=== PATIENT | female | born 1930 | race Caucasian/White ===

== ENCOUNTER 2017-03-30 11:21 | Observation (INO) | payer MEDICARE, MEDICAID ==
[2017-03-30] MEDS ORDERED: Nitroglycerin 2% Ointment 1 INCH/1 GM Packet ONE (11:40)
--- NOTE | 2017-03-30 11:54 | RAD ---
CHEST ONE VIEW PORTABLE: HISTORY: An 87-year-old female with chest pain. COMPARISON: 11/01/16. Heart size is within normal limits. Minimal increased linear and interstitial markings bilaterally, stable. Atherosclerosis of the aorta with some ectasia. IMPRESSION: Stable-appearing chest. No acute intrathoracic disease. POS: KHARIH
[2017-03-30 11:57] LABS: #Basophils 0.1 thou/uL (0.0-0.2); #Eosinphils 0.6 thou/uL (0.0-0.7); #Lymphocytes 3.2 thou/uL (1.20-3.40); #Monocytes 0.9 thou/uL (0.11-0.59); %Basophils 0.6 % (0.0-1.0); %Eosinophils 6.6 % (0.0-10.0); %Lymphocytes 32.6 % (21.0-51.0); %Monocytes 9.3 % (0.0-10.0); Hematocrit 38.1 % (36.0-47.0); Mean Platelet Volume 6.7 fL (7.4-10.4); Red Blood Cell (RBC) Count 4.15 mill/uL (4.20-5.40); White Blood Cell (WBC) Count 9.8 thou/uL (4.8-10.8)
[2017-03-30 12:04] LABS: Prothrombin Time 13.5 SEC (12.0-14.7)
[2017-03-30 12:05] LABS: PTT 42.5 SEC (22.9-36.1)
[2017-03-30 12:21] LABS: ALT (SGPT) 10 U/L (8-55); AST (SGOT) 10 U/L (5-34); Alkaline Phosphatase 87 U/L (40-150); Anion Gap 14 mmol/L (10-20); BUN (Urea Nitrogen) 25 mg/dL (9.8-20.1); Bilirubin, Total 0.4 mg/dL (0.2-1.2); CK (CPK) 32 U/L (29-168); Calc. Creatinine Clearance 0 mL/min (70-130); Calcium 9.1 mg/dL (7.8-10.44); Carbon Dioxide 26 mmol/L (23-31); Chloride 103 mmol/L (98-107); Estimated GFR-MDRD 39; Globulin 3.3 g/dL (2.4-3.5); Lipase 19 U/L (8-78); Protein, Total 6.8 g/dL (6.0-8.3)
[2017-03-30 12:26] LABS: Troponin I Less than 0.010 ng/mL (< 0.028)
[2017-03-30] MEDS ORDERED: Enoxaparin Sodium 80 MG/0.8 ML SYRINGE ONE (13:05)
[2017-03-30 15:30] LABS: Troponin I Less than 0.010 ng/mL (< 0.028)
[2017-03-30] MEDS ORDERED: Nitroglycerin 0.4 MG TAB (25 Tab Bottle) SL PRN (15:31)
[2017-03-30] MEDS ORDERED: Mag-Al 1200 mg/1200 mg/30 ML UDCUP PO PRN (15:31)
[2017-03-30 15:39] VITALS: BMI 30.4
[2017-03-30] MEDS: Heparin 5,000 UNITS/ML VIAL SC SCH ×2 (16:41→21:38)
[2017-03-30] MEDS: Acetaminophen 325 MG TAB PO SCH (16:43)
[2017-03-30] MEDS: Sodium Chloride 0.9% 1,000 ML IV SCH (16:44)
--- NOTE | 2017-03-30 17:12 | HP ---
DATE OF ADMISSION: 03/30/2017 PRIMARY CARE PHYSICIAN: Dr. Peralta. DIRECT SUPPORT WORKER: Dr. Love. SURROGATE DECISION MAKER: Her daughter, [place] Al. CHIEF COMPLAINT: Chest pain and tiredness. HISTORY OF PRESENT ILLNESS: The patient is an 87-year-old female, who was getting dressed to go to [employer] this morning and she felt very tired. She started having some shortness of breath and she used 2 puffs of her inhaler, which is albuterol and after that she developed some chest pain which was retrosternal with some radiation to the left upper extremity. She did not get clammy. S he did not have nausea. She did not vomit. The pain was rated on a scale from 1-10 as 9. It laste d approximately a couple of minutes. It came back several times in the next several minutes then in approximately 15 minutes EMS crew arrived after they were called and they gave her aspirin and prob ably some nitro and the pain subsided. She is doing quite well at this point when I am admitting he r to the hospital, but because of the previous history of congestive heart failure and some coronary artery disease, we are admitting her to the hospital for further management. PAST MEDICAL HISTORY: Positive for: 1. Hypertension. 2. Congestive heart failure with diastolic dysfunction. 3. Dyslipidemia. 4. Asthma. 5. Coronary artery disease. 6. Hypothyroidism. 7. Gastroesophageal reflux disease. PAST SURGICAL HISTORY: 1. Bilateral knee replacement. 2. Cholecystectomy. 3. Cataract surgeries. 4. Hysterectomy. 5. Hemorrhoidectomy 6. Hernia repair. FAMILY HISTORY: Father had COPD, mother had coronary artery disease and brother had throat cancer. SOCIAL HISTORY: She denies any alcohol intake. She denies any smoking. She does not use any illic it drugs. ALLERGIES: TETANUS IMMUNOGLOBULIN, CODEINE, LISINOPRIL and SHELLFISH. MEDICATIONS: Albuterol inhalers 2 puffs p.r.n. as needed, Vicodin 5/325 mg half a tablet twice a da y, isosorbide 30 mg once a day, Zofran 4 mg p.r.n. for nausea, meloxicam 7.5 mg twice a day, furosem boris 40 mg I believe once a day, Coreg 6.25 mg twice a day, citalopram 20 mg once a day, gabapentin 3 00 mg every morning and 900 every evening, [place] as mentioned above, Synthroid 100 mcg once a day, P rotonix 40 mg twice a day, pravastatin 40 mg at bedtime, hydralazine 25 mg p.o. twice a day, but thi s is questionable. REVIEW OF SYSTEMS: Constitutional: Negative for fever and chills. Eyes: Negative for eye pain an d eye discharge. ENT: Negative for epistaxis and nasal congestion. Endocrine: Positive for some growth on all her thyroid, which is presenting as swallowing problem and the episodes of choking. R espiratory: Positive for shortness of breath. Negative for cough. Cardiovascular: Positive for c hest pain. Negative for palpitations. Feet swelling. Gastrointestinal: Negative for nausea and v omiting. Frequent heart fountain. Genitourinary: Negative for dysuria and hematuria. Neurologic: P ositive for dizzy spells. Positive for memory problem. Psychiatric: Negative for homicidal and suicidal ideations. PHYSICAL EXAMINATION: GENERAL: She is not in any distress during my visit. VITAL SIGNS: Her blood pressure is 123/53, pulse is 58, respiratory rate is 14. HEENT: Head is atraumatic, normocephalic. Pupils are responding to light properly. Sclerae is non icteric. Conjunctivae pinkish. Oral mucosa is moist. NECK: Supple, no lymphadenopathy. LUNGS: Clear. HEART: S1, S2 normal. No S3, no S4, no any murmur. ABDOMEN: Soft, nontender, nondistended, bowel sounds are present, no organomegaly. EXTREMITIES: No clubbing, cyanosis or edema. NEUROLOGIC: She is alert and oriented x4. There are no any focal deficits. Cranial nerves are int act. SKIN: No rash or erythema. LABORATORY AND X-RAY FINDINGS: Labs showed white count of 9.8, hemoglobin 12.2, hematocrit 38.1, pl atelet count is 317. PT 13.5, INR 1.0, aPTT 42.5. Normal electrolytes, BUN 25, creatinine 1.29. T he rest of chemistry within normal limits. Troponin I less than 0.010. She had a chest x-ray done, which was reviewed personally by me and it did not show any acute abnormalities, some few interstit ial markings which are looking chronic. EKG showed just normal sinus rhythm with ventricular rate o f 60 and no ischemic changes. IMPRESSION: 1. Chest pain, at this point is resolved, but because of patient's previous history, she is getting admitted for further management. Last time she was here in October. She did not consent for any spec [facility] testing and apparently she was supposed to see Dr. Love tomorrow and had some testing done. The patient was given 1 dose of Lovenox 1 mg/kg subcutaneously. 2. Prerenal azotemia. We will give her a small dose of normal saline at 75 mL per hour. 3. Hypertension, well controlled. 4. History of congestive heart failure with diastolic dysfunction. 5. Dyslipidemia. 6. Asthma. 7. Coronary artery disease. 8. Hypothyroidism. 9. Gastroesophageal reflux disease. PLAN: Admission to observation. Condition is fair. Activity is bed rest and bathroom privileges w ith assistance. IV 75 mL per hour of normal saline. We will continue her home medications except f or gabapentin and Vicodin. We will have army helicopter pilot to evaluate her. We will do echocardiogram an d she will be on aspirin 325 mg once a day and we are going to obtain a thyroid ultrasound since she has a growth on her thyroid according to her and this is symptomatic. Also, we will obtain a thyro id panel. For deep venous thrombosis prophylaxis, we will do regular heparin 5000 units every 12 ho urs and PUD prophylaxis, she will continue taking her Protonix 40 mg twice a day.
[2017-03-30 18:09] LABS: Troponin I Less than 0.010 ng/mL (< 0.028)
[2017-03-30] MEDS ORDERED: Communication Order-Pharmacy FS SCH (21:00)
[2017-03-30] MEDS ORDERED: Atorvastatin Calcium 10 MG TAB PO SCH (21:00)
[2017-03-30] MEDS: Citalopram 20 MG TAB PO SCH (21:37)
[2017-03-30] MEDS: Carvedilol 6.25 MG TAB PO SCH (21:37)
[2017-03-30] MEDS ORDERED: Gabapentin 300 MG CAP PO SCH (23:45)
--- NOTE | 2017-03-31 00:04 | ADD-CON ---
This is an addendum to the Cardiology consult note dictated by the nurse practitioner, Mi. DATE OF ADMISSION: 03/30/2017 DATE OF CONSULTATION: 03/30/2017 INDICATION FOR CONSULTATION: This is an 87-year-old female with chest pain and history of coronary artery disease. She has undergone at least 3 cardiac catheterizations in the past, first 2 were unr emarkable for any significant coronary artery disease this extends back to either 1996 or 2003. She did have a cardiac catheterization in [address] Espinoza, had a 3-vessel disease with no stenosis m ore than 60%. She has been treated by medical management. She has been followed on a routine basis with Dr. Love for her congestive heart failure which she has developed and last few weeks or mo nths, she has been complaining of increased fatigue. She was asleep all the time and today when she was getting ready to go to [employer], she developed more fatigue and shortness of breath and had chest discomfort which she describes as being a sharp pain which radiated to the lower sternal area then radiated up to the upper chest area. She became more short of breath but denies any diaphoresis, na usea, or vomiting. At this time, she has been admitted to the hospital for further evaluation and t reatment. Her hemoglobin is 12.2. Her creatinine is 1.29. Her LDL level is 162. Her cardiac enzy mes are unremarkable. Her EKG shows a sinus bradycardia with no acute changes. No indication of pr evious myocardial infarctions or ischemic changes. Heart rate is 60 beats per minute. After discus gabrielle with the patient, she is agreeable to undergo a cardiac catheterization. She has had stress te sting previously, has been unremarkable. However, she does continue to have some chest discomfort a nd given her age and history of known coronary artery disease by 2009, she may have had progression of her disease and is willing to undergo cardiac catheterization. Her chest pain is somewhat atypic al and that the sharp pain radiating up into the chest area, but she also says that radiated down th e left arm and the arm became heavy and this lasted for half an hour to an hour. I have explained t he procedure and the risks to her for the cardiac catheterization to include bleeding, infection, po ssibly a myocardial infarction, cerebrovascular accident, renal insufficiency, allergic contrast anmol ction, and even the possibility of and she understands. She is going to proceed in the hopes that she may get some relief from her overall fatigue and the chest discomfort. More so, she is mor e fatigued than actually having chest discomfort and also some shortness of breath. Further care of the patient will be by Dr. Love when he sees the patient tomorrow, but at this time, we will ke ep her n.p.o. for tomorrow morning and we will plan for a probable cardiac catheterization.
--- NOTE | 2017-03-31 05:57 | CON ---
DATE OF CONSULTATION: 03/30/2017 ROOM NUMBER: [id number] PRIMARY CARE PHYSICIAN: Binu Peralta M.D. PRIMARY GOVERNMENT PROPERTY INSPECTOR: Saleem Love M.D. REFERRING PHYSICIAN: Ricky Llanos M.D. HISTORY OF PRESENT ILLNESS: Ms. Zaragoza is an 87-year-old female with significant history of coronary artery disease, angina, and edema in her lower extremities. Patient was transferred from home to [facility] by EMS due to chest pain, shortness breath and chronic fatigue. This morning, when the patient was ready for Friday service in [facility], suddenly she felt very weak with a lightning like sharp pain in her left chest for a few seconds 3 times, and shortness of breath. The pain radiated to her left upper extremity and upper back. She also started having double vision. So patient's caregiver called ambulance and the patient was transferred to the emergency department for further evaluation and treatment. According to the patient's daughter, she was active until 3 months ago. Since then, the patient was complaining of weakness and sleeping all the time. The patient started using nitroglycerin 2 or 3 times a week for chest pain. The latest NTG usage was about 1 week ago. She had to use 3 nitroglycerin and aspirin at that time. She also complained of palpitations with exertion and bedtime. She also complained of shortness of breath. She has to take deep breaths between the sentences when she was talking. She also complained about vertigo-like dizziness when she look up or quick movement and when she wakes up in the morning, she feels her room is spinning and she feels dizziness. She was hospitalized in 10/2016 for bilateral edema and chest pain. At that time, patient refused to have a cardiac catheterization and further treatment. However, at this time, the patient and the patient's daughter would like to have any cardiac workup and further treatment. The patient's last cardiac catheterization was in 2009 which revealed normal left main, LAD has a proximal 40% stenosis, mid 40% stenosis, 30% distally, the 50-60% of very distal stenosis and a 50% apical, and the first diagonal 70% ostial lesion, second diagonal ostial 40% lesion, left circumflex 40% ostial, 50 % proximal 40% mid, first OM has a 40% lesion stenosis, and the right coronary artery had 50% stenosis, 20% in the mid, 30% distal stenosis. The patient's last echocardiogram was in 04/02 which revealed EF of 50-55% and moderate mitral valve regurgitation, mild tricuspid regurgitation and moderate primary valve regurgitation. Patient had a stress test in 07/[address] Love's office which revealed no evidence of ischemia with an EF of 82%. She had a CTA in 10/2016, which revealed no evidence of pulmonary emboli and venous Doppler in 10/2016 shows no evidence of DVTs. She underwent thyroid sonogram in 2016 revealing diffusely hypertrophied without focal abnormality evidence. PAST MEDICAL HISTORY: 1. Coronary artery disease. 2. Patient has a history of diastolic dysfunction. 3. Hypertension. 4. Hyperlipidemia. 5. Enlarged thyroid. 6. Gastroesophageal reflux disease. 7. Hypothyroidism. 8. High cholesterol. 9. Hernia repair. 10. History of multiple falls due to vertigo like dizziness. 11. Posterior circulation transient ischemic attack in the past. 12. Bilateral leg cellulitis. PAST SURGICAL HISTORY: 1. Tonsillectomy. 2. Bilateral total knee repairs. 3. Cholecystectomy. 4. Hysterectomy. 5. Hemorrhoidectomy. 6. Appendectomy. 7. Cataract surgery. 8. Back surgery. FAMILY HISTORY: The patient's 3 brothers due to cardiac related and lung cancer. However, 3 of them were heavy smokers according to patient's report. There are no significant diabetes, hypertension, high cholesterol or CVA, or diabetes related family history. SOCIAL HISTORY: She is a . She lives with her daughter who is the main caregiver and also she has a part-time caregiver to take care of her, especially during the nights because of multiple history of falls. Patient denies any smoking, ETOH or drug abuse. She enjoys 2 cups of coffee in the morning and 1 cup of coffee in the afternoon and she would like to drink at times of fluid and she believes that she has to drink at times of fluid for dizziness. ALLERGIES: She is allergic to LISINOPRIL, TETANUS VACCINE, TOXOID, SHELLFISH DERAVATIVES, and also STEROIDS which makes her anxious. HOME MEDICATIONS: Lasix 40 mg once a day and as needed for worsening edema, Protonix 40 mg twice a day, levothyroxine 100 mcg daily, Citalopram 20 mg twice a day, gabapentin 900 at bedtime and 300 mg in a.m., Zyrtec 10 mg at night, hydrocodone 5/325 half tablet twice a day as needed for pain, Imdur 30 mg once a day, Symbicort 1 puff daily as needed, Zofran 4 mg every 6 hours as needed, omeprazole 20 mg once a day, meloxicam 7.5 mg twice a day, carvedilol 6.25 twice a day. REVIEW OF SYSTEMS: The following complete review of systems was negative, unless otherwise mentioned in the HPI or below. Constitutional: Weight loss or gain, sense of well being, ability to conduct usual activities, exercise tolerance. Skin: Rash, itching, change in hair growth or loss, nail changes, breast lumps, tenderness, swelling, nipple discharge. She does complain of warmness and redness in her bilateral lower extremities. Eyes: Positive for double vision this morning, but negative for vision change, tearing, blind spots, pain. HEENT: Positive for vertigo like dizziness, but negative for lightheadedness, headache, nasal bleeding, cold, obstruction, discharge denture difficulty, gingival bleeding, dentures, neck stiffness, pain, obstruction, discharge. Cardiovascular: Precordial pain, substernal distress, palpitations, syncope, orthopnea, nocturnal dyspnea, cyanosis, hypertension, heart murmur, claudication. Respiratory: Positive for shortness of breath. Negative for pain, wheezing, stridor, cough, hemoptysis, fever or night sweats. Gastrointestinal: Poor appetite, dysphagia, indigestion , abdominal pain, heartburn, nausea, vomiting, jaundice. Positive for watery diarrhea for ER, but negative for blood in the stool. Musculoskeletal: Pain, swelling, redness or heat of muscle or joint, limitation of motion, muscular weakness, atrophy or cramps but she uses a walker for activities. Neurologic: Seizure conversion tremor, incoordination, paralysis, difficulties with memory of speech, sensory or motor disturbance or muscular coordination. Psychiatric: Emotional problem, anxiety, depression, previous psychiatric care , unusual perceptions or hallucinations. PHYSICAL EXAMINATION: VITAL SIGNS: Blood pressure 135/64, heart rate 58, respiratory rate 18, O2 sat 94% with room air, temperature 98.3. GENERAL: Well-developed, well-nourished without any acute distress. HEAD: Normocephalic, atraumatic. EYES: Extraocular muscle movement intact. She does not wear any glasses at this moment. ENT: Nasal mucosa are moist without lesion. NECK: No JVD. Neck supple and normal range of motion. LUNGS: Clear to auscultation bilaterally. No wheezing, rales or rhonchi noted. CARDIOVASCULAR: Regular rate and rhythm. Normal S1, S2. There are no S3 or S4. No significant murmur, hives, thrill bruits or rubs noted. There are 2+ pulses in bilateral dorsal pedis, posterior tibial, and popliteal and femoral arteries. Bilateral carotid pulses are present without bruits or thrill. There are no pitting edema with erythema in her bilateral lower extremities, tenderness with edema. ABDOMEN: Soft, nontender to palpate, nondistended. Bowel sounds are present. MUSCULOSKELETAL: Able to move all extremities. No calf tenderness. SKIN: Again warmness and erythema in her bilateral lower extremities. Other than that, no skin rash, lesion or bruise noted. NEUROLOGIC: Alert, oriented x4, awake. Normal affect. Nonfocal. PSYCHIATRIC: Mood, affect normal. EKG: A 12-lead EKG and the ER shows sinus rhythm with heart rates 60s with no ST segment change or T-wave inversion. LABORATORY DATA: WBC 9.8, hemoglobin 12.2, hematocrit 38.1, platelets 317. INR 1.0. Sodium 139, potassium 4.1, BUN 25, creatinine 1.29, CK-MB 1.4, troponin less than 0.010 x3. BNP is 96, total cholesterol 228, triglyceride 176 , HDL 31, LDL 162. Chest x-ray today reveal no acute cardiovascular abnormality. ASSESSMENT AND PLAN: 1. Chest pain. Patient's stress test in 07/2015 revealed no evidence of ischemia; however, the patient has symptoms of shortness of breath and chronic fatigue which became worse within 3 months. She required 2 or 3 times nitroglycerin per week. At this time, patient agreed to undergo further cardiac workup. The patient is going to undergo cardiac catheterization, possibly tomorrow by Dr. Love. 2. History of coronary artery disease. Again, patient is going to undergo cardiac catheterization, possibly tomorrow by Dr. Love. Patient is going to be n.p.o. from midnight tonight. 3. Hypertension. Patient's blood pressure is stable. We like to continue current medication and adjust medications as appropriate. 4. Ischemic cardiomyopathy. Patient's last echo was in 2014, which revealed ejection fraction of 50-55%. Patient's echocardiogram result on this admission is pending at this moment. 5. Bilateral lower extremity edema. The patient is on Lasix 40 mg p.o. daily. We would like to continue and we like to continue to monitor patient's condition and we might like to adjust patient's diuretic in the future. 6. Hyperlipidemia. She is on atorvastatin 10 mg. We might like to increase patient's statin medication due to high LDL. 7. Hypothyroidism. The patient is on levothyroxine, which is managed by primary care doctor. 8. Gastroesophageal reflux disease. Protonix 40 mg twice a day which is managed by primary care doctor. Thank you very much for following the Cardiology service to participate in the care of the patient. We will follow along with the patient's care team and make further recommendations as appropriate. TONIA
[2017-03-31] MEDS: Carvedilol 6.25 MG TAB PO SCH ×2 (06:04→20:29)
[2017-03-31] MEDS: Levothyroxine Sodium 112 MCG TAB PO SCH (06:05)
[2017-03-31] MEDS ORDERED: Communication Order-Pharmacy FS SCH (07:15)
[2017-03-31] MEDS ORDERED: Sodium Chloride 0.9% 1,000 ML IV SCH ×2 (07:15→10:15)
--- NOTE | 2017-03-31 08:42 | ULT ---
THYROID: DATE: 03/31/17. COMPARISON: None. HISTORY: An 87-year-old female with thyroid growth. TECHNIQUE: Multiplanar bermudez scale sonographic imaging of the thyroid gland obtained. FINDINGS: The patient reports a palpable mass inferior to the chin. The lamp shade sewer measures an area of heter ogeneous increased echogenicity in the midline sublingual region measuring up to 4.2 x 3.2 x 3.3 cm, poorly assessed on this examination secondary to shadowing. This may represent a soft tissue mass in the midline sublingual region. The thyroid gland is not well assessed secondary to body habitus and echogenicity of the thyroid par enchyma, which is heterogeneous and of increased echogenicity. The thyroid isthmus is estimated in the 3 mm range in AP dimension. The right lobe measures approximately 3.2 x 1.7 x 1.3 cm. No obvious right thyroid mass. The left thyroid lobe measures 1.9 x 0.9 x 0.7 cm. There is a 7 mm hypoechoic lesion along the post erior aspect of the left lobe of the thyroid gland which demonstrates what appears to be increased t hrough transmission but also demonstrates internal increased echogenicity. This could represent a c omplex cyst either exophytic in nature emanating from the left thyroid gland or a hypoechoic lesion posterior to the left thyroid gland. IMPRESSION: 1. Questionable soft tissue mass in the midline sublingual region. CT neck is advised with IV con trast for further assessment. 2. 7 mm complex cystic lesion posterior to or emanating from the posterior aspect of the left thyro id gland. This is will probably also be better assessed on CT examination with IV contrast. POS: ROLANDA
[2017-03-31] MEDS: Sodium Chloride 0.9% 1,000 ML IV SCH (08:50)
[2017-03-31] MEDS ORDERED: Heparin 10,000 UNITS/1 ML VIAL ONE (08:57)
[2017-03-31] MEDS ORDERED: Aspirin 325 MG TAB PO SCH (09:00)
[2017-03-31] MEDS ORDERED: Gabapentin 300 MG CAP PO SCH ×2 (09:00→21:00)
[2017-03-31] MEDS ORDERED: Furosemide 40 MG TAB PO SCH (09:00)
[2017-03-31] MEDS ORDERED: Fentanyl 100 MCG/2 ML VIAL ONE (09:08)
[2017-03-31] MEDS ORDERED: Midazolam HCl 2 mg/2 ml Vial ONE (09:08)
[2017-03-31] MEDS ORDERED: Bivalirudin 250 MG VIAL ONE (09:33)
[2017-03-31] MEDS ORDERED: Mag-Al 1200 mg/1200 mg/30 ML UDCUP ONE (10:16)
[2017-03-31] MEDS ORDERED: Iopamidol 370 76% 50 ML VIAL FS ONE (14:08)
[2017-03-31] MEDS ORDERED: Iopamidol 370 76% 100 ML VIAL ONE (14:08)
[2017-03-31] MEDS: Acetaminophen 325 MG TAB PO SCH ×2 (14:45→20:28)
--- NOTE | 2017-03-31 15:05 | PDOC.PN ---
- Subjective Encounter Start Date: 03/31/17 Encounter Start Time: 15:03 Patient seen and examined. No new complaints. No overnight events for cath today - Objective Resuscitation Status: Resuscitation Status FULL:Full Resuscitation MAR Reviewed: Yes Vital Signs & Weight: Vital Signs (12 hours) Temp Pulse Resp BP BP Pulse Ox 03/31/17 07:49 98.2 F 59 L 16 147/63 H 96 03/31/17 07:48 98.4 F 62 18 03/31/17 06:04 136/63 03/31/17 06:00 98.4 F 62 18 136/63 95 Weight Weight 166 lb 3.2 oz I&O: 03/30/17 03/31/17 04/01/17 06:59 06:59 06:59 Intake Total 1313 420 Output Total 600 Balance 713 420 Result Diagrams: 03/30/17 11:49 03/30/17 11:49 Phys Exam - Physical Examination Constitutional: NAD HEENT: PERRLA Neck: no JVD Respiratory: no rales Cardiovascular: no significant murmur Gastrointestinal: non-tender Musculoskeletal: pulses present Neurological: moves all 4 limbs Dx/Plan (1) Chest pain Code(s): R07.9 - CHEST PAIN, UNSPECIFIED Status: Acute (2) GERD (gastroesophageal reflux disease) Code(s): K21.9 - GASTRO-ESOPHAGEAL REFLUX DISEASE WITHOUT ESOPHAGITIS Status: Acute (3) CAD (coronary artery disease) Code(s): I25.10 - ATHSCL HEART DISEASE OF [place] CORONARY ARTERY W/O ANG PCTRS Status: Acute (4) Chronic diastolic heart failure Code(s): I50.32 - CHRONIC DIASTOLIC (CONGESTIVE) HEART FAILURE Status: Acute Comment: EF 55-60%, stable (5) Hypertension Code(s): I10 - ESSENTIAL (PRIMARY) HYPERTENSION Status: Chronic Qualifiers: Comment: Continue current regimen (6) Hypothyroidism Code(s): E03.9 - HYPOTHYROIDISM, UNSPECIFIED Status: Chronic Comment: Continue Levothyroxine 112mcg daily - Plan * f/u cath results * cont current mx
[2017-03-31] MEDS: PROVENTIL INHALER 6.7 G (200 INHALATIONS) INH PRN ×2 (16:30→21:26)
[2017-03-31] MEDS ORDERED: Ondansetron HCl/PF 4 MG/2 ML Vial IVP PRN (18:43)
[2017-03-31] MEDS: Citalopram 20 MG TAB PO SCH (20:29)
[2017-03-31] MEDS ORDERED: Atorvastatin Calcium 40 MG TAB PO SCH (21:00)
--- NOTE | 2017-03-31 22:10 | EKG ---
Test Reason : POOST CATH Blood Pressure : / mmHG Vent. Rate : 054 BPM Atrial Rate : 054 BPM P-R Int : 180 ms QRS Dur : 096 ms QT Int : 430 ms P-R-T Axes : 020 027 008 degrees QTc Int : 407 ms Sinus bradycardia Low voltage QRS Borderline ECG When compared with ECG of 30-MAR-2017 11:29, (Unconfirmed) No significant change was found Confirmed by BETO JORDAN, . SAlireza (4) on 03/31/2017 10:09:45 PM Referred By: CAMILLA Confirmed By:DR. Rich PÉREZ MD
[2017-04-01 05:45] LABS: #Eosinphils 0.7 thou/uL (0.0-0.7); #Lymphocytes 2.4 thou/uL (1.20-3.40); #Monocytes 0.8 thou/uL (0.11-0.59); #Neutrophils 6.1 thou/uL (1.40-6.50); %Basophils 0.2 % (0.0-1.0); %Lymphocytes 23.6 % (21.0-51.0); Hematocrit 38.5 % (36.0-47.0); Red Blood Cell (RBC) Count 4.11 mill/uL (4.20-5.40)
[2017-04-01 06:04] LABS: ALT (SGPT) 12 U/L (8-55); AST (SGOT) 14 U/L (5-34); Alkaline Phosphatase 74 U/L (40-150); Anion Gap 10 mmol/L (10-20); BUN (Urea Nitrogen) 14 mg/dL (9.8-20.1); Bilirubin, Total 0.3 mg/dL (0.2-1.2); Calc. Creatinine Clearance 58 mL/min (70-130); Carbon Dioxide 26 mmol/L (23-31); Chloride 108 mmol/L (98-107); Estimated GFR-MDRD 68; Protein, Total 6.1 g/dL (6.0-8.3)
--- NOTE | 2017-04-01 07:49 | PDOC.PN ---
- Subjective Encounter Start Date: 04/01/17 Encounter Start Time: 07:48 Patient seen and examined. No new complaints. No overnight events - Objective Resuscitation Status: Resuscitation Status FULL:Full Resuscitation MAR Reviewed: Yes Vital Signs & Weight: Vital Signs (12 hours) Temp Pulse Resp BP BP Pulse Ox 04/01/17 07:18 97.3 F L 62 18 04/01/17 05:00 97.3 F L 62 18 147/65 H 96 03/31/17 23:33 97.4 F L 57 L 18 120/58 L 94 L 03/31/17 21:26 63 18 96 03/31/17 20:29 162/72 H 03/31/17 20:27 60 162/72 H 03/31/17 20:05 98.6 F 72 18 Weight Weight 169 lb 3.2 oz I&O: 03/31/17 04/01/17 04/02/17 06:59 06:59 06:59 Intake Total 1313 2090 Output Total 600 460 Balance 713 1630 Result Diagrams: 04/01/17 05:03 04/01/17 05:03 Phys Exam - Physical Examination Constitutional: NAD HEENT: PERRLA Neck: no JVD Respiratory: no wheezing Cardiovascular: no significant murmur Gastrointestinal: non-tender Musculoskeletal: pulses present Neurological: moves all 4 limbs Psychiatric: A&O x 3 Dx/Plan (1) Chest pain Code(s): R07.9 - CHEST PAIN, UNSPECIFIED Status: Acute Comment: cath showed minimal disease (2) GERD (gastroesophageal reflux disease) Code(s): K21.9 - GASTRO-ESOPHAGEAL REFLUX DISEASE WITHOUT ESOPHAGITIS Status: Acute (3) CAD (coronary artery disease) Code(s): I25.10 - ATHSCL HEART DISEASE OF [place] CORONARY ARTERY W/O ANG PCTRS Status: Acute (4) Chronic diastolic heart failure Code(s): I50.32 - CHRONIC DIASTOLIC (CONGESTIVE) HEART FAILURE Status: Acute Comment: EF 55-60%, stable (5) Hypertension Code(s): I10 - ESSENTIAL (PRIMARY) HYPERTENSION Status: Chronic Qualifiers: Comment: Continue current regimen (6) Hypothyroidism Code(s): E03.9 - HYPOTHYROIDISM, UNSPECIFIED Status: Chronic Comment: Continue Levothyroxine 112mcg daily - Plan * doing good * d/c home
[2017-04-01 08:20] VITALS: BP 167/72; TEMP 98.1
[2017-04-01] MEDS: PROVENTIL INHALER 6.7 G (200 INHALATIONS) INH PRN (09:19)
--- NOTE | 2017-04-01 12:15 | DIS ---
DATE OF ADMISSION: 03/30/2017 DATE OF DISCHARGE: 04/01/2017 DIAGNOSES ON DISCHARGE: 1. Chest pain, noncardiac in origin, status post cardiac catheterization with minimal heart disease , most probably causes gastroesophageal reflux disease. 2. Hypertension, stable diastolic congestive heart failure with ejection fraction of 55%, dyslipide judy, asthma, coronary artery disease, hypothyroidism, and gastroesophageal reflux disease. DISCHARGE MEDICATIONS: Include all home medications except cholesterol medication has been changed to Lipitor 40 mg p.o. daily. MANAGER BRANCH ON THE CASE: Dr. Love. BRIEF HOSPITAL COURSE: An 87-year-old pleasant lady came in to the hospital because of chest pain a nd tightness. She was admitted for further evaluation and treatment. Echocardiogram showed ejectio n fraction of 55%. The patient's troponins were negative. Cardiac catheterization showed minimal d isease. She was cleared by cardiology standpoint to be sent home. She is asked to have a sleep aubrey dy as an outpatient to evaluate for the tiredness and also check her thyroid profile as an outpatien t by PCP. She understands all this. Arrangements for her to be in the CHF clinic have been made as well because her feet swell up. She has been advised about diet as well. She is right now medical ly stable to be discharged. The patient is asked to come back to the emergency room in case symptom s recur. Total time for this discharge took 35 minutes.
--- NOTE | 2017-04-01 21:07 | EKG ---
Test Reason : Blood Pressure : / mmHG Vent. Rate : 062 BPM Atrial Rate : 062 BPM P-R Int : 156 ms QRS Dur : 094 ms QT Int : 410 ms P-R-T Axes : 034 014 024 degrees QTc Int : 416 ms Normal sinus rhythm Normal ECG When compared with ECG of 31-MAR-2017 10:57, No significant change was found Confirmed by DR. Rich PÉREZ MD ([id number]) on 04/01/2017 9:07:16 PM Referred By: CAMILLA Confirmed By:DR. Rich PÉREZ MD
--- NOTE | 2017-05-12 13:52 | EKG ---
Test Reason : CP Blood Pressure : / mmHG Vent. Rate : 060 BPM Atrial Rate : 060 BPM P-R Int : 158 ms QRS Dur : 090 ms QT Int : 424 ms P-R-T Axes : 104 005 028 degrees QTc Int : 424 ms Normal sinus rhythm Normal ECG Confirmed by ROSI JORDAN, KRISTIN ([id number]), acquisition editor AUGUSTUS REBOLLEDO ([id number]) on 05/12/2017 1:51:55 PM Referred By: ROSI Confirmed By:KRISTIN ARANDA MD
== END 2017-04-01 09:35 | disposition home or self-care (01) ==
LOC: ERS 11:21 → 2SW 13:20
PROVIDERS: ADMIT Internal Medicine; ATTEND Internal Medicine
DX: R07.2 Precordial pain (principal); I11.0 Hypertensive heart disease with heart failure; I50.32 Chronic diastolic (congestive) heart failure; E78.5 Hyperlipidemia, unspecified; J45.909 Unspecified asthma, uncomplicated; I25.10 Atherosclerotic heart disease of native coronary artery without angina pectoris; E03.9 Hypothyroidism, unspecified; K21.9 Gastro-esophageal reflux disease without esophagitis; I08.1 Rheumatic disorders of both mitral and tricuspid valves; I37.1 Nonrheumatic pulmonary valve insufficiency; Z79.899 Other long term (current) drug therapy; Z88.7 Allergy status to serum and vaccine; Z88.8 Allergy status to other drugs, medicaments and biological substances; Z88.5 Allergy status to narcotic agent; Z91.013 Allergy to seafood; Z98.42 Cataract extraction status, left eye; Z98.41 Cataract extraction status, right eye; Z96.653 Presence of artificial knee joint, bilateral; Z90.89 Acquired absence of other organs; Z90.49 Acquired absence of other specified parts of digestive tract; Z90.710 Acquired absence of both cervix and uterus; Z98.890 Other specified postprocedural states; Z91.81 History of falling; Z82.49 Family history of ischemic heart disease and other diseases of the circulatory system
CPT/HCPCS: 71010; 76536; 80053; 80061; 82550; 82553; 83690; 83880; 84439; 84484 ×2; 85025; 85347 ×2; 85610; 85730; 93005 ×3; 93306; 93458; 93571; 93798; 94640 ×2; 94664; 96360; 96361 ×2; 96372; 99285; C1769 ×2; C1887; G0378; 36415; 84443; 93010; 99152; 99153; A4216; J0153; J0583; J1644; J1650; J2250; J3010

== ENCOUNTER 2017-04-25 09:07 | Inpatient (IN) | payer MEDICARE, MEDICAID ==
[2017-04-25 10:06] LABS: ALT (SGPT) 11 U/L (8-55); AST (SGOT) 15 U/L (5-34); Albumin 3.7 g/dL (3.4-4.8); Alkaline Phosphatase 90 U/L (40-150); Anion Gap 13 mmol/L (10-20); BUN (Urea Nitrogen) 14 mg/dL (9.8-20.1); Bilirubin, Total 0.5 mg/dL (0.2-1.2); CK (CPK) 43 U/L (29-168); Calc. Creatinine Clearance 0 mL/min (70-130); Calcium 9.3 mg/dL (7.8-10.44); Carbon Dioxide 27 mmol/L (23-31); Chloride 104 mmol/L (98-107); Estimated GFR-MDRD 55; Globulin 3.4 g/dL (2.4-3.5); Glucose 107 mg/dL (83-110); Lipase 14 U/L (8-78); Potassium 4.1 mmol/L (3.5-5.1); Protein, Total 7.1 g/dL (6.0-8.3); Sodium 140 mmol/L (136-145)
[2017-04-25 10:09] LABS: CKMB 1.4 ng/mL (0-6.6); Troponin I Less than 0.010 ng/mL (< 0.028)
[2017-04-25 10:18] LABS: Band 5 % (5-11); Hemoglobin 13.1 g/dL (12.0-16.0); Hypochromia SLIGHT = 6-15 cells (100X) (0-5/hpf); Lymphocytes 14 % (21-51); MDiff Complete? YES; Mean Corpuscular HGB CONC 29.9 g/dL (32.0-36.0); Mean Corpuscular Hemoglobin 28.1 pg (27.0-31.0); Mean Corpuscular Volume 93.7 fl (81.0-99.0); Monocytes 2 % (0-10); Neutrophil 79 % (42-75); Platelet Count 316 thou/uL (130-400); Red Blood Cell (RBC) Count 4.68 mill/uL (4.20-5.40); White Blood Cell (WBC) Count 21.4 thou/uL (4.8-10.8)
--- NOTE | 2017-04-25 10:33 | RAD ---
1 VIEW CHEST: Date: 04/25/17 HISTORY: Chest pain. Difficulty breathing. COMPARISON: 03/30/17. FINDINGS: Portable upright chest demonstrates atherosclerosis. Normal cardiac silhouette. Pulmonary vessels and hilum are normal. Costophrenic angles are clear. No mass. No consolidation. There are chronic change s. No pneumothorax or osseous abnormalities. IMPRESSION: 1. Atherosclerosis. 2. Chronic changes. POS: [facility]
[2017-04-25 12:46] LABS: Bilirubin Negative (Negative); Blood, Urine Negative (Negative); Clarity CLEAR (Clear); Glucose, Urine (Dipstick) Negative (Negative); Leukocyte Negative (Negative); Nitrite Negative (Negative); Protein, Urine (Dipstick) Negative (Neg-Trace)
--- NOTE | 2017-04-25 13:47 | HP ---
PRIMARY CARE PHYSICIAN: Dr. Binu Peralta. PRIMARY CLIP LOADING MACHINE FEEDER: Dr. Love. SURROGATE DECISION MAKER: The patient's daughter, [place] Zayas. REASON FOR ADMISSION: Community-acquired atypical pneumonia. HISTORY OF PRESENT ILLNESS: An 87-year-old female who has underlying history of chronic diastolic he art failure, hypertension, coronary artery disease who lives at home with her daughter. The patient reports that she was feeling sick for the last 3 days. Yesterday, she had couple of times of vomitin g. She had poor appetite. She was not feeling good yesterday. She was feeling more weak than usual . She was also having cough, dry in nature. She was not having any chest pain, but because of cough she was having chest wall soreness. She was also having sore throat and she was feeling congestion in her chest. She was becoming more and more weak and last night she was not able to sleep because o f cough and for the last couple of nights, she was also having a coughing spell that was making her w gasper up. This morning, the patient was more lethargic, sleepy and her daughter, [place] tried to wake her up. At that time, patient woke up with horrible cough and shortness of breath and she called paramedics a nd subsequently patient was brought to the emergency room. Paramedics gave her DuoNeb therapy. When she came to emergency room, she appeared ill. She was afebrile with T-maximum 101.4. She was tachy pneic and hypertensive. Patient denies any UTI symptoms. She denies any hematemesis, hematochezia, or melena. She was having chills at home. Today in the emergency room, chest x-ray showed no acute cardiopulmonary process and x-ray chest was consistent with chronic changes, but routine blood tests showed leukocytosis with bandemia. REVIEW OF SYSTEMS: The following complete review of systems was negative, unless otherwise mentioned in the HPI or below: Constitutional: Weight loss or gain, ability to conduct usual activities. Skin: Rash, itching. Eyes: Double vision, pain. ENT/Mouth: Nose bleeding, neck stiffness, pain, tenderness. Cardiovascular: Palpitations, dyspnea on exertion, orthopnea. Respiratory: Shortness of breath, wheezing, cough, hemoptysis, fever or night sweats. Gastrointestinal: Poor appetite, abdominal pain, heartburn, nausea, vomiting, constipation, or diarr hea. Genitourinary: Urgency, frequency, dysuria, nocturia. Musculoskeletal: Pain, swelling. Neurologic/Psychiatric: Anxiety, depression. Allergy/Immunologic: Skin rash, bleeding tendency. Please see my HPI for pertinent positive and negative. All other review of systems reviewed and nega tive except as mentioned in the HPI. ALLERGIES: INFLUENZA VIRUS VACCINE, LISINOPRIL, SHELLFISH containing product, TETANUS TOXOID. CURRENT HOME MEDICATIONS: Gabapentin 300 mg p.o. t.i.d., Lipitor 40 mg p.o. at bedtime, Coreg 6.25 m g p.o. b.i.d., Lasix 40 mg p.o. daily, Synthroid 100 mcg p.o. daily, omeprazole 40 mg p.o. daily, Fred tolin inhaler as needed basis, [place] 5 half tablet q.12 hourly p.r.n. 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 PAST SURGICAL HISTORY: Bilateral knee replacement, cholecystectomy, cataract surgery, hysterectomy, hemorrhoidectomy, hernia repair, colon surgery, tumor removed from hip. PSYCHIATRIC HISTORY: Anxiety and depression. SOCIAL HISTORY: Patient lives at home with her daughter. No history of tobacco, alcohol or illicit drug abuse. She is making her own decisions. FAMILY HISTORY: Father had COPD. Mother had CAD and brother had throat cancer. EMERGENCY ROOM COURSE: Patient is given levofloxacin. PHYSICAL EXAMINATION: VITAL SIGNS: On arrival, blood pressure 178/82, pulse 91, respiratory rate 23, temperature 101.4, sa turation 96% on room air, weight 72.5 kilograms. GENERAL: Patient appears weak. No obvious acute distress. HEAD: Normocephalic, atraumatic. EYES: Pupils round and reactive to light. Extraocular muscles intact. ENT: Oropharynx within normal limits. Moist mucous membranes. No oral lesions. No pharyngeal eryt john, no exudate. NECK: Supple, no JVD, no thyromegaly, no carotid bruit, no meningeal signs of irritation. LUNGS: Coarse breath sounds bilaterally. Few end expiratory wheezing heard. No rales. CARDIAC: S1 and S2 regular. No murmur, no gallop, no rub. ABDOMEN: Soft, bowel sounds present, nontender, nondistended. No organomegaly, no mass, no suprapub ic tenderness. BACK: Examination unremarkable, no CVA tenderness. EXTREMITIES: Upper extremity, passive movements of all joints are normal. Lower extremities: Trace edema noted. Good peripheral pulsation. SKIN: No skin rash. HEMATOLOGICAL SYSTEM: No lymphadenopathy. PSYCHIATRIC: Normal affect. IMAGING AND SIGNIFICANT LABORATORY DATA: 1. EKG, threat monitoring analyst showing sinus rhythm. 2. Chest x-ray based on my review, no acute cardiopulmonary process, though chronic lung changes not ed. 3. CBC: WBC 21.4, hemoglobin 13.1, platelet 316 with left shift and bandemia. 4. BMP: Sodium 140, potassium 4.1, chloride 104, carbon dioxide 27, anion gap 13, BUN 14, creatinin e 0.95, glucose 107, calcium 9.3, lactic acid 2.1. 5. LFT: AST 15, ALT 11, alkaline phosphatase 90, albumin 3.7, CK 43, CK-MB 1.4, troponin I less karen n 0.010. Lipase 14. Urinalysis normal. 5. Influenza A and B negative. ASSESSMENT AND PLAN/IMPRESSION: 1. Sepsis. The patient has 101.4 fever. Source of infection is suspecting atypical pneumonia. She also has leukocytosis with bandemia. At this point, I will keep this patient in the hospital. We w ill treat with Rocephin and levofloxacin as a broad coverage. 2. Atypical community-acquired pneumonia. As mentioned above, this is the main source of infection given clinical history. Influenza screen is negative. We will check urine streptococcal and [place] lla antigen test as well as we will check streptococcal pharyngitis screen. We will continue with Ro cephin and Levaquin therapy and we will monitor labs. 3. Hypertension. I will continue Coreg 6.25 mg twice daily, Lasix 40 mg p.o. daily as per home dosa ge. 4. Chronic low back pain and neuropathy. We will continue gabapentin 300 mg three times daily. 5. Dyslipidemia. We will continue Lipitor 40 mg p.o. at bedtime. 6. Chronic diastolic heart failure. We will avoid IV fluid and continue Lasix 40 mg p.o. daily. Th e patient is euvolemic and we will control her blood pressure. 7. Gastroesophageal reflux disease. We will continue Protonix 40 mg p.o. daily. 8. Chronic obstructive pulmonary disease/asthma. We will continue DuoNeb therapy q.6 hourly. 9. Deep venous thrombosis prophylaxis, Lovenox 40 mg subcu daily. 10. Gastrointestinal prophylaxis, Protonix 40 mg p.o. daily. CODE STATUS: I spoke with patient who can make her own decisions and she decided that she does not w ant to be resuscitated even one time. She does not want to try in case of cardiopulmonary arrest and she requested DNR order. Disposition plan based on clinical course. We are expecting patient's sta y in hospital more than 2 midnights. Plan of care discussed with the patient in detail.
[2017-04-25] MEDS ORDERED: Ondansetron ODT 4 MG TAB PO PRN (15:43)
[2017-04-25] MEDS ORDERED: cefTRIAXone\\ROCEPHIN 1 GM in Sodium Chloride 0.9% 100 ML IVPB SCH (15:43)
[2017-04-25] MEDS ORDERED: Eucerin (Mineral Oil/Petrolatum,White) 30 gm Jar TOP PRN (15:43)
[2017-04-25] MEDS ORDERED: Ondansetron HCl/PF 4 MG/2 ML Vial IVP PRN (15:43)
[2017-04-25] MEDS ORDERED: Loperamide HCl 2 MG CAP PO PRN (15:43)
[2017-04-25] MEDS ORDERED: Acetaminophen 325 MG TAB PO PRN (15:43)
[2017-04-25] MEDS ORDERED: HYDROcodone/Acetaminophen 5/325 mg Tablet PO PRN (15:43)
[2017-04-25] MEDS ORDERED: Loratadine 10 MG TAB PO PRN (15:43)
[2017-04-25] MEDS ORDERED: Mag-Al 1200 mg/1200 mg/30 ML UDCUP PO PRN (15:43)
[2017-04-25] MEDS ORDERED: Diabetic Tussin 200 MG/10 ML UDCUP PO PRN (15:43)
[2017-04-25] MEDS ORDERED: Chloraseptic Spray 180 ml Bottle PO PRN (15:43)
[2017-04-25] MEDS ORDERED: hydrALAZINE 20 MG/ML VIAL SLOW IVP PRN (15:43)
[2017-04-25] MEDS ORDERED: Milk Of Magnesia 30 ML UDCUP PO PRN (15:43)
[2017-04-25] MEDS ORDERED: Sodium Chloride 0.65% Nasal 44 ML BOT EA NARE PRN (15:43)
[2017-04-25] MEDS ORDERED: Senokot 8.6 MG TAB PO PRN (15:43)
[2017-04-25] MEDS ORDERED: Artificial Tears 18 DROP/0.9 ML EA EYE PRN (15:43)
[2017-04-25 17:15] VITALS: BMI 28.4
[2017-04-25] MEDS: Gabapentin 300 MG CAP PO SCH ×2 (17:16→21:32)
[2017-04-25] MEDS: Carvedilol 6.25 MG TAB PO SCH (17:16)
[2017-04-25] MEDS: CEFAZOLIN 1 GM, Syringe 2.5 ML in Sterile Water 7.5 ML SLOW IVP SCH (17:33)
[2017-04-25] MEDS ORDERED: Meloxicam 7.5 MG TAB PO SCH (21:30)
[2017-04-25] MEDS: Atorvastatin Calcium 40 MG TAB PO SCH (21:32)
[2017-04-25] MEDS: guaiFENesin ER 600 MG TAB PO SCH (21:33)
[2017-04-25] MEDS ORDERED: Gabapentin 300 MG CAP PO SCH (22:00)
[2017-04-26 05:36] LABS: #Eosinphils 0.4 thou/uL (0.0-0.7); #Lymphocytes 2.9 thou/uL (1.20-3.40); #Monocytes 1.1 thou/uL (0.11-0.59); #Neutrophils 11.8 thou/uL (1.40-6.50); %Basophils 0.2 % (0.0-1.0); %Eosinophils 2.3 % (0.0-10.0); %Lymphocytes 18.1 % (21.0-51.0); %Monocytes 6.7 % (0.0-10.0); %Neutrophils 72.8 % (42.0-75.0); Hemoglobin 11.4 g/dL (12.0-16.0); Mean Corpuscular Hemoglobin 29.8 pg (27.0-31.0); Mean Platelet Volume 7.7 fL (7.4-10.4); Platelet Count 245 thou/uL (130-400); RBC Distribution Width 12.1 % (11.5-14.5); Red Blood Cell (RBC) Count 3.81 mill/uL (4.20-5.40); White Blood Cell (WBC) Count 16.2 thou/uL (4.8-10.8)
[2017-04-26] MEDS: Levothyroxine Sodium 100 MCG TAB PO SCH (06:30)
[2017-04-26 06:44] LABS: Anion Gap 13 mmol/L (10-20); BUN (Urea Nitrogen) 17 mg/dL (9.8-20.1); Calc. Creatinine Clearance 43 mL/min (70-130); Calcium 8.8 mg/dL (7.8-10.44); Carbon Dioxide 25 mmol/L (23-31); Chloride 103 mmol/L (98-107); Estimated GFR-MDRD 53; Glucose 69 mg/dL (83-110); Potassium 4.1 mmol/L (3.5-5.1); Sodium 137 mmol/L (136-145)
[2017-04-26] MEDS: Meloxicam 7.5 MG TAB PO SCH ×2 (08:06→20:26)
[2017-04-26] MEDS: Furosemide 40 MG TAB PO SCH (08:06)
[2017-04-26] MEDS: Saccharomyces boulardii 250 MG CAP PO SCH (08:06)
[2017-04-26] MEDS: Carvedilol 6.25 MG TAB PO SCH ×2 (08:06→16:49)
[2017-04-26] MEDS: guaiFENesin ER 600 MG TAB PO SCH ×2 (08:06→20:27)
[2017-04-26] MEDS: Gabapentin 300 MG CAP PO SCH (08:07)
[2017-04-26] MEDS: Enoxaparin Sodium 40 MG/0.4 ML SYRINGE SC SCH (08:07)
[2017-04-26] MEDS ORDERED: Citalopram 20 MG TAB PO SCH (09:00)
--- NOTE | 2017-04-26 09:13 | PDOC.PN ---
- Subjective Encounter Start Date: 04/26/17 Encounter Start Time: 07:50 -: old records requested/rev Patient seen and examined. No new complaints. No overnight events, feels better , no chest pain, less cough, no fever - Objective Resuscitation Status: Resuscitation Status DNR:Do Not Resuscitate MAR Reviewed: Yes Vital Signs & Weight: Vital Signs (12 hours) Temp Pulse Resp BP BP BP Pulse Ox 04/26/17 08:06 131/72 04/26/17 08:00 98.1 F 80 18 120/73 95 04/26/17 05:17 97.8 F 62 20 114/60 93 L 04/26/17 00:51 65 16 95 04/26/17 00:00 98.5 F 66 18 103/47 L 92 L I&O: 04/25/17 04/26/17 04/27/17 06:59 06:59 06:59 Intake Total 340 690 Output Total 100 Balance 240 690 Result Diagrams: 04/26/17 04:11 04/26/17 04:11 Phys Exam - Physical Examination Constitutional: NAD HEENT: PERRLA, moist MMs, sclera anicteric Neck: no JVD, supple Respiratory: no wheezing, no rales, no rhonchi Cardiovascular: RRR, no significant murmur, no rub Gastrointestinal: soft, non-tender, no distention, positive bowel sounds Musculoskeletal: no edema, pulses present Neurological: non-focal, normal sensation, moves all 4 limbs Lymphatic: no nodes Psychiatric: normal affect Skin: no rash, normal turgor Dx/Plan (1) Atypical pneumonia Code(s): J18.9 - PNEUMONIA, UNSPECIFIED ORGANISM Status: Acute (2) Sepsis Code(s): A41.9 - SEPSIS, UNSPECIFIED ORGANISM Status: Acute (3) Weakness generalized Code(s): R53.1 - WEAKNESS Status: Acute (4) CAD (coronary artery disease) Code(s): I25.10 - ATHSCL HEART DISEASE OF [place] CORONARY ARTERY W/O ANG PCTRS Status: Chronic (5) COPD (chronic obstructive pulmonary disease) Status: Chronic (6) Chronic diastolic heart failure Code(s): I50.32 - CHRONIC DIASTOLIC (CONGESTIVE) HEART FAILURE Status: Chronic Comment: EF 55-60%, stable (7) Chronic low back pain Code(s): M54.5 - LOW BACK PAIN; G89.29 - OTHER CHRONIC PAIN Status: Chronic (8) Dyslipidemia Code(s): E78.5 - HYPERLIPIDEMIA, UNSPECIFIED Status: Chronic (9) GERD (gastroesophageal reflux disease) Code(s): K21.9 - GASTRO-ESOPHAGEAL REFLUX DISEASE WITHOUT ESOPHAGITIS Status: Chronic (10) Hypertension Code(s): I10 - ESSENTIAL (PRIMARY) HYPERTENSION Status: Chronic Qualifiers: Comment: (11) Hypothyroidism Code(s): E03.9 - HYPOTHYROIDISM, UNSPECIFIED Status: Chronic Comment: - Plan cont current plan of care, continue antibiotics, PT/OT, speech therapy * continue rocephin and levaquin * medication reviewed as below * symptomatic treatment * start PT * follow culture * selected home medication * overall doing well with current treatment. Review of Systems - Review of Systems ENT: negative: Ear Pain, Ear Discharge, Nose Pain, Nose Discharge, Nose Congestion, Mouth Pain, Mouth Swelling, Throat Pain, Throat Swelling, Other Respiratory: negative: Cough, Dry, Shortness of Breath, Hemoptysis, SOB with Excertion, Pleuritic Pain, Sputum, Wheezing Cardiovascular: negative: Chest Pain, Palpitations, Orthopnea, Paroxysmal Noc. Dyspnea, Edema, Light Headedness, Other Gastrointestinal: negative: Nausea, Vomiting, Abdominal Pain, Diarrhea, Constipation, Melena, Hematochezia, Other Genitourinary: negative: Dysuria, Frequency, Incontinence, Hematuria, Retention , Other Musculoskeletal: negative: Neck Pain, Shoulder Pain, Arm Pain, Back Pain, Hand Pain, Leg Pain, Foot Pain, Other Skin: negative: Rash, Lesions, Ronald, Bruising, Other - Medications/Allergies Allergies/Adverse Reactions: Allergies Allergy/AdvReac Type Severity Reaction Status Date / Time tetanus immune globulin Allergy Severe Verified 10/06/15 02:12 Influenza Virus Vaccines Allergy Verified 03/30/17 16:58 lisinopril Allergy Verified 10/06/15 02:12 shellfish derived Allergy Verified 10/06/15 02:12 tetanus toxoid, adsorbed Allergy Anaphylaxis Verified 03/06/16 11:58 Medications: Current Medications Acetaminophen (Tylenol) 650 mg PO Q4H PRN PRN Reason: Headache/Fever or Pain Last Admin: 04/25/17 17:30 Dose: 650 mg Hydrocodone Bitart/Acetaminophen ([place] 5/325) 0.5 tab PO Q4H PRN PRN Reason: Moderate Pain (4-6) Al Hydroxide/Mg Hydroxide (Maalox) 30 ml PO Q6H PRN PRN Reason: Heartburn or Indigestion Albuterol/Ipratropium (Duoneb) 3 ml NEB [id number] PRN PRN Reason: SOB &/or Wheezing Last Admin: 04/26/17 00:51 Dose: 3 ml Artificial Tears (Tears Naturale) 0 drop EA EYE PRN PRN PRN Reason: Dry Eyes Atorvastatin Calcium (Lipitor) 40 mg PO HS [facility] Last Admin: 04/25/17 21:32 Dose: 40 mg Carvedilol (Coreg) 6.25 mg PO BID-WM [facility] Last Admin: 04/26/17 08:06 Dose: 6.25 mg Citalopram Hydrobromide (Celexa) 20 mg PO DAILY [facility] Last Admin: 04/26/17 08:06 Dose: 20 mg Enoxaparin Sodium (Lovenox) 40 mg SC 0900 [facility] Last Admin: 04/26/17 08:07 Dose: 40 mg Furosemide (Lasix) 40 mg PO DAILY-AC [facility] Last Admin: 04/26/17 08:06 Dose: 40 mg Gabapentin (Neurontin) 300 mg PO TID [facility] Last Admin: 04/26/17 08:07 Dose: 300 mg Guaifenesin (Robitussin Sf) 200 mg PO Q4H PRN PRN Reason: Cough Guaifenesin (Mucinex) 600 mg PO Q12HR [facility] Last Admin: 04/26/17 08:06 Dose: 600 mg Hydralazine HCl (Apresoline) 10 mg SLOW IVP Q4H PRN PRN Reason: Systolic BP > 180 Levofloxacin 500 mg/ Device 100 mls @ 100 mls/hr IVPB Q24HR [facility] Cefazolin Sodium 1 gm/ Syringe (2.5 ml/ Sterile Water) 10 mls @ 120 mls/hr SLOW IVP 1700 [facility] Last Admin: 04/25/17 17:33 Dose: 10 mls Levothyroxine Sodium (Synthroid) 100 mcg PO 0600 [facility] Last Admin: 04/26/17 06:30 Dose: 100 mcg Loperamide HCl (Imodium) 2 mg PO PRN PRN PRN Reason: Diarrhea/Loose Stools Loratadine (Claritin) 10 mg PO DAILYPRN PRN PRN Reason: Sinus Symptoms Magnesium Hydroxide (Milk Of Magnesium) 30 ml PO DAILYPRN PRN PRN Reason: Constipation Meloxicam (Mobic) 7.5 mg PO BID [facility] Last Admin: 04/26/17 08:06 Dose: 7.5 mg Mineral Oil/White Petrolatum (Eucerin Cream) 0 gm TOP BIDPRN PRN PRN Reason: Dry Skin Ondansetron HCl (Zofran Odt) 4 mg PO Q6H PRN PRN Reason: Nausea/Vomiting Ondansetron HCl (Zofran) 4 mg IVP Q6H PRN PRN Reason: Nausea/Vomiting Pantoprazole Sodium (Protonix) 40 mg PO 2100 [place] Pantoprazole Sodium (Protonix) 40 mg PO BID [facility] Last Admin: 04/26/17 08:08 Dose: 40 mg Phenol (Chloraseptic [place] 180 Ml Bot) 0 ml PO PRN PRN PRN Reason: Sore Throat Saccharomyces Boulardii (Florastor) 250 mg PO DAILY [facility] Last Admin: 04/26/17 08:06 Dose: 250 mg Senna (Senokot) 2 tab PO HSPRN PRN PRN Reason: Constipation Sodium Chloride ([place] Nasal [place] 0.65%) 0 ml EA NARE QIDPRN PRN PRN Reason: Nasal Congestion
[2017-04-26] MEDS: CEFAZOLIN 1 GM, Syringe 2.5 ML in Sterile Water 7.5 ML SLOW IVP SCH (16:50)
[2017-04-26] MEDS: Citalopram 20 MG TAB PO SCH (20:26)
[2017-04-26] MEDS: Atorvastatin Calcium 40 MG TAB PO SCH (20:27)
[2017-04-26] MEDS ORDERED: Gabapentin 300 MG CAP PO SCH (21:00)
[2017-04-27] MEDS: Levothyroxine Sodium 100 MCG TAB PO SCH (05:47)
[2017-04-27 07:03] LABS: Eosinophils 10 % (0-10); Hemoglobin 11.2 g/dL (12.0-16.0); Lymphocytes 30 % (21-51); MDiff Complete? YES; Mean Corpuscular HGB CONC 31.6 g/dL (32.0-36.0); Mean Corpuscular Hemoglobin 29.5 pg (27.0-31.0); Mean Corpuscular Volume 93.3 fl (81.0-99.0); Mean Platelet Volume 8.2 fL (7.4-10.4); Monocytes 5 % (0-10); Neutrophil 55 % (42-75); PLT Morphology Comment Appears Adequate; Platelet Count 134 thou/uL (130-400); RBC Distribution Width 11.8 % (11.5-14.5); White Blood Cell (WBC) Count 10.6 thou/uL (4.8-10.8)
--- NOTE | 2017-04-27 07:59 | PDOC.PN ---
- Subjective Encounter Start Date: 04/27/17 Encounter Start Time: 07:45 Patient seen and examined. No new complaints. No overnight events - Objective Resuscitation Status: Resuscitation Status DNR:Do Not Resuscitate MAR Reviewed: Yes Vital Signs & Weight: Vital Signs (12 hours) Temp Pulse Resp BP Pulse Ox 04/26/17 20:00 98 F 58 L 16 123/50 L 99 I&O: 04/26/17 04/27/17 04/28/17 06:59 06:59 06:59 Intake Total 340 1530 Output Total 100 1400 Balance 240 130 Result Diagrams: 04/27/17 04:14 04/26/17 04:11 Phys Exam - Physical Examination Constitutional: NAD HEENT: PERRLA, moist MMs, sclera anicteric Neck: no JVD, supple Respiratory: no wheezing, no rales, no rhonchi Cardiovascular: RRR, no significant murmur, no rub Gastrointestinal: soft, non-tender, no distention, positive bowel sounds Musculoskeletal: no edema, pulses present Neurological: non-focal, normal sensation Psychiatric: normal affect, A&O x 3 Skin: no rash, normal turgor Dx/Plan (1) Atypical pneumonia Code(s): J18.9 - PNEUMONIA, UNSPECIFIED ORGANISM Status: Acute (2) Sepsis Code(s): A41.9 - SEPSIS, UNSPECIFIED ORGANISM Status: Acute (3) Weakness generalized Code(s): R53.1 - WEAKNESS Status: Acute (4) CAD (coronary artery disease) Code(s): I25.10 - ATHSCL HEART DISEASE OF [place] CORONARY ARTERY W/O ANG PCTRS Status: Chronic (5) COPD (chronic obstructive pulmonary disease) Status: Chronic (6) Chronic diastolic heart failure Code(s): I50.32 - CHRONIC DIASTOLIC (CONGESTIVE) HEART FAILURE Status: Chronic Comment: EF 55-60%, stable (7) Chronic low back pain Code(s): M54.5 - LOW BACK PAIN; G89.29 - OTHER CHRONIC PAIN Status: Chronic (8) Dyslipidemia Code(s): E78.5 - HYPERLIPIDEMIA, UNSPECIFIED Status: Chronic (9) GERD (gastroesophageal reflux disease) Code(s): K21.9 - GASTRO-ESOPHAGEAL REFLUX DISEASE WITHOUT ESOPHAGITIS Status: Chronic (10) Hypertension Code(s): I10 - ESSENTIAL (PRIMARY) HYPERTENSION Status: Chronic Qualifiers: Comment: (11) Hypothyroidism Code(s): E03.9 - HYPOTHYROIDISM, UNSPECIFIED Status: Chronic Comment: - Plan cont current plan of care, continue antibiotics * medication reviewed as below * symptomatic treatment * change to omnicef on discharge * possible discharge later today. Review of Systems - Review of Systems ENT: negative: Ear Pain, Ear Discharge, Nose Pain, Nose Discharge, Nose Congestion, Mouth Pain, Mouth Swelling, Throat Pain, Throat Swelling, Other Respiratory: negative: Cough, Dry, Shortness of Breath, Hemoptysis, SOB with Excertion, Pleuritic Pain, Sputum, Wheezing Cardiovascular: negative: Chest Pain, Palpitations, Orthopnea, Paroxysmal Noc. Dyspnea, Edema, Light [place]adedness, Other Gastrointestinal: negative: Nausea, Vomiting, Abdominal Pain, Diarrhea, Constipation, Melena, Hematochezia, Other Genitourinary: negative: Dysuria, Frequency, Incontinence, Hematuria, Retention , Other Musculoskeletal: negative: Neck Pain, Shoulder Pain, Arm Pain, Back Pain, Hand Pain, Leg Pain, Foot Pain, Other Skin: negative: Rash, Lesions, Ronald, Bruising, Other - Medications/Allergies Allergies/Adverse Reactions: Allergies Allergy/AdvReac Type Severity Reaction Status Date / Time tetanus immune globulin Allergy Severe Verified 10/06/15 02:12 Influenza Virus Vaccines Allergy Verified 03/30/17 16:58 lisinopril Allergy Verified 10/06/15 02:12 shellfish derived Allergy Verified 10/06/15 02:12 tetanus toxoid, adsorbed Allergy Anaphylaxis Verified 03/06/16 11:58 Medications: Current Medications Acetaminophen (Tylenol) 650 mg PO Q4H PRN PRN Reason: Headache/Fever or Pain Last Admin: 04/25/17 17:30 Dose: 650 mg Hydrocodone Bitart/Acetaminophen ([place] 5/325) 0.5 tab PO Q4H PRN PRN Reason: Moderate Pain (4-6) Last Admin: 04/27/17 01:19 Dose: 0.5 tab Al Hydroxide/Mg Hydroxide (Maalox) 30 ml PO Q6H PRN PRN Reason: Heartburn or Indigestion Albuterol/Ipratropium (Duoneb) 3 ml NEB M8RS-DP PRN PRN Reason: SOB &/or Wheezing Last Admin: 04/26/17 14:50 Dose: 3 ml Artificial Tears (Tears Naturale) 0 drop EA EYE PRN PRN PRN Reason: Dry Eyes Atorvastatin Calcium (Lipitor) 40 mg PO HS [facility] Last Admin: 04/26/17 20:27 Dose: 40 mg Carvedilol (Coreg) 6.25 mg PO BID-WM [facility] Last Admin: 04/26/17 16:49 Dose: 6.25 mg Citalopram Hydrobromide (Celexa) 20 mg PO BID [facility] Last Admin: 04/26/17 20:26 Dose: 20 mg Enoxaparin Sodium (Lovenox) 40 mg SC 0900 [facility] Last Admin: 04/26/17 08:07 Dose: 40 mg Furosemide (Lasix) 40 mg PO DAILY-AC [facility] Last Admin: 04/26/17 08:06 Dose: 40 mg Gabapentin (Neurontin) [facility] [place] Gabapentin (Neurontin) 900 mg PO [facility] Last Admin: 04/26/17 20:26 Dose: 900 mg Guaifenesin (Robitussin Sf) 200 mg PO Q4H PRN PRN Reason: Cough Guaifenesin (Mucinex) 600 mg PO Q12HR [facility] Last Admin: 04/26/17 20:27 Dose: 600 mg Hydralazine HCl (Apresoline) 10 mg SLOW IVP Q4H PRN PRN Reason: Systolic BP > 180 Levofloxacin 500 mg/ Device 100 mls @ 100 mls/hr IVPB Q24HR [facility] Last Admin: 04/26/17 12:29 Dose: 100 mls Cefazolin Sodium 1 gm/ Syringe (2.5 ml/ Sterile Water) 10 mls @ 120 mls/hr SLOW IVP 1700 [facility] Last Admin: 04/26/17 16:50 Dose: 10 mls Levothyroxine Sodium (Synthroid) 100 mcg PO 0600 [facility] Last Admin: 04/27/17 05:47 Dose: 100 mcg Loperamide HCl (Imodium) 2 mg PO PRN PRN PRN Reason: Diarrhea/Loose Stools Loratadine (Claritin) 10 mg PO DAILYPRN PRN PRN Reason: Sinus Symptoms Magnesium Hydroxide (Milk Of Magnesium) 30 ml PO DAILYPRN PRN PRN Reason: Constipation Meloxicam (Mobic) 7.5 mg PO BID [facility] Last Admin: 04/26/17 20:26 Dose: 7.5 mg Mineral Oil/White Petrolatum (Eucerin Cream) 0 gm TOP BIDPRN PRN PRN Reason: Dry Skin Ondansetron HCl (Zofran Odt) 4 mg PO Q6H PRN PRN Reason: Nausea/Vomiting Ondansetron HCl (Zofran) 4 mg IVP Q6H PRN PRN Reason: Nausea/Vomiting Pantoprazole Sodium (Protonix) 40 mg PO 2100 [facility] Last Admin: 04/26/17 20:27 Dose: 40 mg Phenol (Chloraseptic [place] 180 Ml Bot) 0 ml PO PRN PRN PRN Reason: Sore Throat Saccharomyces Boulardii (Florastor) 250 mg PO DAILY [facility] Last Admin: 04/26/17 08:06 Dose: 250 mg Senna (Senokot) 2 tab PO HSPRN PRN PRN Reason: Constipation Sodium Chloride ([place] Nasal [place] 0.65%) 0 ml EA NARE QIDPRN PRN PRN Reason: Nasal Congestion
[2017-04-27] MEDS: Furosemide 40 MG TAB PO SCH (08:05)
[2017-04-27] MEDS: Meloxicam 7.5 MG TAB PO SCH (08:05)
[2017-04-27] MEDS: Carvedilol 6.25 MG TAB PO SCH (08:05)
[2017-04-27] MEDS: Saccharomyces boulardii 250 MG CAP PO SCH (08:05)
[2017-04-27] MEDS: guaiFENesin ER 600 MG TAB PO SCH (08:05)
[2017-04-27] MEDS: Citalopram 20 MG TAB PO SCH (08:06)
[2017-04-27] MEDS: Enoxaparin Sodium 40 MG/0.4 ML SYRINGE SC SCH (08:06)
[2017-04-27 08:22] VITALS: BP 94/64; TEMP 98.4
[2017-04-27] MEDS ORDERED: Gabapentin 300 MG CAP PO SCH (09:00)
--- NOTE | 2017-04-27 12:26 | DIS ---
DATE OF ADMISSION: 04/25/2017 DATE OF DISCHARGE: 04/27/2017 PRIMARY CARE PHYSICIAN: Binu Peralta M.D. DISCHARGE DISPOSITION: Home. PRIMARY DISCHARGE DIAGNOSES: 1. Sepsis, resolved. 2. Atypical community-acquired pneumonia, improved. SECONDARY DISCHARGE DIAGNOSES: 1. Hypertension. 2. Chronic low back pain. 3. Peripheral neuropathy. 4. Dyslipidemia. 5. Chronic diastolic heart failure. 6. Gastroesophageal reflux disease. 7. Chronic obstructive pulmonary disease/asthma. PRIMARY PROCEDURE/OPERATION: None. RADIOLOGICAL INVESTIGATION: Chest x-ray was unremarkable, showed chronic changes. SIGNIFICANT LABORATORY DATA: WBC 10.6, hemoglobin 11.2, platelets 134, sodium 137, potassium 4.1, BU N 17, creatinine 0.99, calcium 8.8. LFTs normal. Cardiac enzymes negative. Lactic acid 2.0. Urina lysis normal. Urine culture negative. Blood culture showed . Influenzae negative. DISCHARGE MEDICATIONS: Lipitor 40 mg p.o. at bedtime, Symbicort 1 puff inhalation daily, Coreg 6.25 mg p.o. b.i.d., cetirizine 10 mg p.o. daily, Celexa 20 mg p.o. b.i.d., Lasix 40 mg p.o. daily, gabape ntin 300 mg in the morning and 900 mg at bedtime, Mucinex 600 mg twice daily for 7 days, Omnicef 300 mg p.o. twice daily for 7 days, [place] 0.5 tablet p.o. b.i.d. p.r.n., DuoNeb q.6 hourly, Imdur 30 mg p .o. daily, Synthroid 100 mcg p.o. daily, Mobic 7.5 mg p.o. b.i.d., nitroglycerin 0.4 mg sublingual p. r.n., omeprazole 20 mg p.o. daily, Zofran 4 mg q.6 hours p.r.n., Florastor 250 mg p.o. daily, Ventoli n inhaler one or two puffs inhalation q.6 hourly p.r.n. CONTRAINDICATIONS: None. CODE STATUS: DNR. INPATIENT CONSULTANTS: None. ALLERGIES: TETANUS TOXOID, INFLUENZA VACCINE, LISINOPRIL. DISCHARGE PLAN: Post hospital, the patient will follow up with primary care physician in 1 week. HOSPITAL COURSE: An 87-year-old female with above-mentioned medical problem who was admitted by me jann chavis 04/25/2017. Please see my HPI for further details. The patient presented to emergency room for no t feeling good. She was having dry cough and shortness of breath and fever at home. Her x-ray was u nremarkable. She was meeting sepsis criteria in the emergency room. Initially, she was tachycardic, tachypneic, hypertensive and she was febrile. Clinically, the patient was appeared to be in atypica l pneumonia, which was treated while in hospital with Rocephin and levofloxacin. On discharge, we ch anged to Omnicef. While in hospital, she remained afebrile. Her WBC count improved to normal. The patient is on room air. She is ambulatory and today she expressed her wish to go home. The patient is completely stable medically. The patient is seen and examined at bedside today. Elisa brown see my progress note from today. All new medication prescriptions sent to her pharmacy.
== END 2017-04-27 14:48 | disposition home or self-care (01) | DRG 871 ==
LOC: ERS 09:07 → T4-A 12:15
PROVIDERS: ADMIT Internal Medicine; ATTEND Internal Medicine
DX: A41.9 Sepsis, unspecified organism (principal); J18.9 Pneumonia, unspecified organism; I11.0 Hypertensive heart disease with heart failure; G62.9 Polyneuropathy, unspecified; I50.32 Chronic diastolic (congestive) heart failure; J44.0 Chronic obstructive pulmonary disease with (acute) lower respiratory infection; I25.10 Atherosclerotic heart disease of native coronary artery without angina pectoris; E03.9 Hypothyroidism, unspecified; E78.5 Hyperlipidemia, unspecified; M54.5 Low back pain; G89.29 Other chronic pain; Z88.7 Allergy status to serum and vaccine; Z88.8 Allergy status to other drugs, medicaments and biological substances; Z91.013 Allergy to seafood; Z96.653 Presence of artificial knee joint, bilateral; Z90.49 Acquired absence of other specified parts of digestive tract; Z82.49 Family history of ischemic heart disease and other diseases of the circulatory system; Z83.6 Family history of other diseases of the respiratory system; Z80.1 Family history of malignant neoplasm of trachea, bronchus and lung
CPT/HCPCS: 36415; 71010; 80048; 80053; 81003; 82553; 83605; 83690; 84484; 85025; 87040; 87086; 87149; 93005; 94640; 94760; 96365; A4216; G8978-GP-CK; G8979-GP-CK; G8980-GP-CK; G8996-GN-CI; G8997-GN-CI; J0690; J1650; J1956; J7620

== ENCOUNTER 2017-09-22 11:55 | Outpatient (CLI) | payer MEDICARE, MEDICAID | END 2017-09-22 11:56 | disposition home or self-care (01) | LOC: BICULT 11:55 | PROVIDERS: ATTEND Specialist | DX: E04.1 Nontoxic single thyroid nodule (principal); E04.2 Nontoxic multinodular goiter | CPT/HCPCS: 76536 ==